=== PATIENT | female | born 1975 ===

== ENCOUNTER 2019-03-22 06:12 | Inpatient (IN) ==
[~2019-03-22 06:12] MED LIST: ACETAMINOPHEN 500 MG TABLET PO ONE; DIAZEPAM 5 MG TABLET PO ONE; FAMOTIDINE 20 MG TABLET PO ONE; GABAPENTIN 400 MG CAPSULE PO ONE; VANCOMYCIN INJ 1,000 MG in SODIUM CHLORIDE 0.9% 250 ML IV ONE; ceFAZolin 1,000 MG in SYRINGE 1 EACH IV ONE
[2019-03-22] MEDS ORDERED: DEXAMETHASONE 4 MG/1 ML VIAL ONE (07:01)
[2019-03-22] MEDS ORDERED: EPINEPHrine 1 MG/ML VIAL ONE (07:01)
[2019-03-22] MEDS ORDERED: BUPIVACAINE MPF 0.25% 30 ML VIAL ONE (07:01)
[2019-03-22] MEDS ORDERED: DIAZEPAM 5 MG TABLET ONE (07:13)
[2019-03-22] MEDS ORDERED: VANCOMYCIN 1,000 MG VIAL ONE (07:13)
[2019-03-22] MEDS ORDERED: GABAPENTIN 400 MG CAPSULE ONE (07:13)
[2019-03-22] MEDS ORDERED: CLINDAMYCIN INJ 50 ML IV ONE (07:14)
[2019-03-22] MEDS ORDERED: ACETAMINOPHEN 500 MG TABLET ONE (07:14)
[2019-03-22] MEDS ORDERED: FAMOTIDINE 20 MG TABLET ONE (07:14)
[2019-03-22] MEDS: CLINDAMYCIN INJ 900 MG in PREMIX 1 EACH IV SCH ×4 (08:45→23:49)
[2019-03-22] MEDS ORDERED: NEOMYCIN/POLYMYXIN/BACITRACIN OINT 28.4 GM TUBE TOP ONE (09:47)
[2019-03-22] MEDS ORDERED: oxyCODONE IR 5 MG TABLET PO PRN ×2 (10:16)
[2019-03-22] MEDS ORDERED: oxyCODONE/ACETAMINOPHEN 5-325 MG TABLET PO PRN (10:16)
[2019-03-22] MEDS ORDERED: ONDANSETRON 4 MG/2 ML VIAL IV PRN (10:16)
[2019-03-22] MEDS ORDERED: MORPHINE 4 MG/1 ML VIAL IV PRN (10:16)
[2019-03-22] MEDS ORDERED: diphenhydrAMINE CAP 25 MG CAPSULE PO PRN (10:16)
[2019-03-22] MEDS ORDERED: PROPOFOL 200 MG/20 ML VIAL IV ONE (13:13)
[2019-03-22] MEDS ORDERED: MIDAZOLAM 2 MG/2 ML VIAL ONE (13:14)
[2019-03-22] MEDS ORDERED: BUPIVACAINE SPINAL 0.75% 2 ML AMP SPINAL ONE (13:14)
[2019-03-22] MEDS ORDERED: TRANEXAMIC ACID 1,000 MG/10 ML VIAL ONE (13:14)
[2019-03-22] MEDS ORDERED: KETAMINE 500 MG/10 ML VIAL ONE (13:14)
[2019-03-22] MEDS ORDERED: ONDANSETRON 4 MG/2 ML VIAL ONE (13:14)
[2019-03-22] MEDS ORDERED: fentaNYL 100 MCG/2 ML VIAL ONE (13:14)
[2019-03-22] MEDS ORDERED: SODIUM CHLORIDE 0.9% 500 ML IV ONE (13:15)
[2019-03-22] MEDS ORDERED: SODIUM CHLORIDE 0.9% 100 ML IV ONE (13:15)
[2019-03-22] MEDS ORDERED: PHENYLEPHRINE 1 MG/10 ML SYRINGE IV ONE (13:15)
[2019-03-22 13:18] LABS: Apearance,Urine CLEAR (Clear); Bacteria,Urine Occasional /HPF (Few); Bilirubin,Urine Negative (Negative); Blood, Urine Negative (Negative); Glucose,Urine (UA) Negative (Negative); Ketones,Urine Negative (Negative); Mucus,Urine Occasional /LPF (Occasional); Nitrite,Urine Positive (Negative); Protein,Urine Negative; Urine Color Yellow (Yellow); Urine Specific Gravity 1.009 (1.001-1.035); Urine Urobilinogen < 2.0 EU/DL (0.2-1.0); WBC,Urine <1 /HPF (0-6)
[2019-03-22] MEDS: KETOROLAC 30 MG/1 ML VIAL IV SCH ×3 (14:30→23:18)
[2019-03-22] MEDS: LEVOTHYROXINE 137 MCG TABLET PO SCH (14:30)
[2019-03-22] MEDS: POTASSIUM CHLORIDE INJ 20 MEQ in LACTATED RINGERS 1,000 ML IV SCH ×2 (15:19→23:48)
[2019-03-22] MEDS: PROPRANOLOL 40 MG TABLET PO SCH ×2 (15:21→20:36)
[2019-03-22] MEDS: GABAPENTIN 300 MG CAPSULE PO SCH ×2 (15:21→20:35)
[2019-03-22] MEDS: oxyCODONE/ACETAMINOPHEN 5-325 MG TABLET PO PRN ×2 (15:28→19:44)
[2019-03-22] MEDS: DOCUSATE SODIUM 100 MG CAPSULE PO SCH (20:35)
[2019-03-22] MEDS: traZODone 50 MG TABLET PO SCH (20:35)
[2019-03-22] MEDS: MORPHINE 4 MG/1 ML VIAL IV PRN (23:20)
[2019-03-23 04:23] LABS: Basophils % 0.1 % (0.0-0.8); Hematocrit 27.7 VOL% (35.7-47.0); Hemoglobin 8.9 GM/DL (12.0-16.0); Immature Granulocytes % 1.2 %; Immature Granulocytes Absolute 0.09 #; Lymphocytes % 12.3 % (21.3-54.2); Mean Corpuscular HGB Conc 32.1 GM/DL (32-36); Mean Corpuscular Volume 90.5 FL (87-102); Mean Platelet Volume 9.2 FL (9.6-12.0); Monocytes % 7.6 % (1.7-12.7); Neutrophils % 78.8 % (38.7-73.9); Platelet Count 373 T/CUMM (130-400); Red Blood Count 3.06 MC/CUMM (3.8-5.5); Red Cell Distribution Width 14.4 % (9.3-17.3); White Blood Count 7.7 T/CUMM (4-12)
[2019-03-23 04:50] LABS: Calcium 8.2 MG/DL (8.5-10.1); Osmolality,Calculated 272.8 MOS/KG (273-304)
[2019-03-23] MEDS: KETOROLAC 30 MG/1 ML VIAL IV SCH (05:45)
[2019-03-23] MEDS: FONDAPARINUX 2.5 MG/0.5 ML SYRINGE SUBCUT SCH (05:45)
[2019-03-23] MEDS: LEVOTHYROXINE 137 MCG TABLET PO SCH (06:55)
[2019-03-23] MEDS: oxyCODONE/ACETAMINOPHEN 5-325 MG TABLET PO PRN ×3 (07:11→23:03)
[2019-03-23] MEDS: PANTOPRAZOLE 40 MG TABLET PO SCH (09:55)
[2019-03-23] MEDS: MULTIVITAMIN (CENTRUM) TABLET PO SCH (09:55)
[2019-03-23] MEDS: CYANOCOBALAMIN 500 MCG TABLET PO SCH (09:55)
[2019-03-23] MEDS: GABAPENTIN 300 MG CAPSULE PO SCH ×3 (09:55→21:10)
[2019-03-23] MEDS: PROPRANOLOL 40 MG TABLET PO SCH ×3 (09:55→21:10)
[2019-03-23] MEDS: hydroCHLOROthiazide 25 MG TABLET PO SCH (09:55)
[2019-03-23] MEDS: DOCUSATE SODIUM 100 MG CAPSULE PO SCH ×2 (09:55→21:10)
[2019-03-23] MEDS: POTASSIUM CHLORIDE 20 MEQ TABLET PO SCH (09:55)
[2019-03-23] MEDS ORDERED: ACETAMINOPHEN 325 MG TABLET PO PRN (10:17)
[2019-03-23] MEDS: MORPHINE 4 MG/1 ML VIAL IV PRN ×2 (15:40→21:12)
[2019-03-23] MEDS: traZODone 50 MG TABLET PO SCH (21:10)
[2019-03-24] MEDS: FONDAPARINUX 2.5 MG/0.5 ML SYRINGE SUBCUT SCH (05:16)
[2019-03-24 05:38] LABS: Basophils % 0.2 % (0.0-0.8); Eosinophils # 0.1 10*3/uL (0.0-0.87); Hematocrit 27.9 VOL% (35.7-47.0); Hemoglobin 8.8 GM/DL (12.0-16.0); Immature Granulocytes % 0.2 %; Immature Granulocytes Absolute 0.01 #; Lymphocytes # 1.7 10*3/uL (1.4-4.0); Lymphocytes % 37.6 % (21.3-54.2); Mean Corpuscular HGB Conc 31.5 GM/DL (32-36); Mean Corpuscular Volume 91.5 FL (87-102); Mean Platelet Volume 9.2 FL (9.6-12.0); Monocytes % 11.1 % (1.7-12.7); Neutrophils % 48.9 % (38.7-73.9); Platelet Count 343 T/CUMM (130-400); Red Blood Count 3.05 MC/CUMM (3.8-5.5); White Blood Count 4.5 T/CUMM (4-12)
[2019-03-24] MEDS ORDERED: LEVOTHYROXINE 137 MCG TABLET PO SCH (07:00)
[2019-03-24] MEDS: MORPHINE 4 MG/1 ML VIAL IV PRN ×2 (09:21→16:53)
[2019-03-24] MEDS: PANTOPRAZOLE 40 MG TABLET PO SCH (09:28)
[2019-03-24] MEDS: hydroCHLOROthiazide 25 MG TABLET PO SCH (09:28)
[2019-03-24] MEDS: PROPRANOLOL 40 MG TABLET PO SCH ×3 (09:28→21:21)
[2019-03-24] MEDS: MULTIVITAMIN (CENTRUM) TABLET PO SCH (09:29)
[2019-03-24] MEDS: GABAPENTIN 300 MG CAPSULE PO SCH ×3 (09:30→21:21)
[2019-03-24] MEDS: POTASSIUM CHLORIDE 20 MEQ TABLET PO SCH (09:31)
[2019-03-24] MEDS: DOCUSATE SODIUM 100 MG CAPSULE PO SCH ×2 (09:31→21:21)
[2019-03-24] MEDS: oxyCODONE/ACETAMINOPHEN 5-325 MG TABLET PO PRN ×2 (14:16→21:20)
[2019-03-24] MEDS: CYANOCOBALAMIN 500 MCG TABLET PO SCH (14:16)
[2019-03-24] MEDS: MAGNESIUM HYDROXIDE SUSP 30 ML UDCUP PO PRN (16:52)
[2019-03-24] MEDS: traZODone 50 MG TABLET PO SCH (21:21)
[2019-03-25] MEDS: MORPHINE 4 MG/1 ML VIAL IV PRN (00:42)
[2019-03-25] MEDS: oxyCODONE/ACETAMINOPHEN 5-325 MG TABLET PO PRN ×4 (03:07→20:28)
[2019-03-25] MEDS: FONDAPARINUX 2.5 MG/0.5 ML SYRINGE SUBCUT SCH (04:46)
[2019-03-25] MEDS: LEVOTHYROXINE 137 MCG TABLET PO SCH (06:01)
[2019-03-25 06:06] LABS: Basophils % 0.6 % (0.0-0.8); Eosinophils # 0.2 10*3/uL (0.0-0.87); Eosinophils % 3.3 % (0.00-10.9); Hematocrit 29.8 VOL% (35.7-47.0); Hemoglobin 9.5 GM/DL (12.0-16.0); Immature Granulocytes % 0.8 %; Immature Granulocytes Absolute 0.04 #; Lymphocytes # 1.7 10*3/uL (1.4-4.0); Lymphocytes % 34.2 % (21.3-54.2); Mean Corpuscular HGB Conc 31.9 GM/DL (32-36); Mean Corpuscular Volume 91.7 FL (87-102); Monocytes % 8.7 % (1.7-12.7); Neutrophils % 52.4 % (38.7-73.9); Platelet Count 336 T/CUMM (130-400); Red Blood Count 3.25 MC/CUMM (3.8-5.5); Red Cell Distribution Width 14.7 % (9.3-17.3); White Blood Count 4.8 T/CUMM (4-12)
[2019-03-25] MEDS: PROPRANOLOL 40 MG TABLET PO SCH ×3 (11:09→20:28)
[2019-03-25] MEDS: PANTOPRAZOLE 40 MG TABLET PO SCH (11:10)
[2019-03-25] MEDS: CYANOCOBALAMIN 500 MCG TABLET PO SCH (11:10)
[2019-03-25] MEDS: MULTIVITAMIN (CENTRUM) TABLET PO SCH (11:11)
[2019-03-25] MEDS: POTASSIUM CHLORIDE 20 MEQ TABLET PO SCH (11:11)
[2019-03-25] MEDS: DOCUSATE SODIUM 100 MG CAPSULE PO SCH ×2 (11:29→20:28)
[2019-03-25] MEDS: MAGNESIUM HYDROXIDE SUSP 30 ML UDCUP PO PRN ×2 (11:29→15:55)
[2019-03-25] MEDS: GABAPENTIN 300 MG CAPSULE PO SCH ×3 (11:29→20:28)
[2019-03-25] MEDS: hydroCHLOROthiazide 25 MG TABLET PO SCH (12:51)
[2019-03-25] MEDS: traZODone 50 MG TABLET PO SCH (20:28)
[2019-03-26] MEDS: oxyCODONE/ACETAMINOPHEN 5-325 MG TABLET PO PRN ×2 (03:43→08:35)
[2019-03-26] MEDS: FONDAPARINUX 2.5 MG/0.5 ML SYRINGE SUBCUT SCH (04:49)
[2019-03-26] MEDS: LEVOTHYROXINE 137 MCG TABLET PO SCH (06:04)
[2019-03-26 08:15] VITALS: BP 122/77
[2019-03-26] MEDS: PANTOPRAZOLE 40 MG TABLET PO SCH (08:36)
[2019-03-26] MEDS: CYANOCOBALAMIN 500 MCG TABLET PO SCH (08:36)
[2019-03-26] MEDS: POTASSIUM CHLORIDE 20 MEQ TABLET PO SCH (08:36)
[2019-03-26] MEDS: hydroCHLOROthiazide 25 MG TABLET PO SCH (08:36)
[2019-03-26] MEDS: MULTIVITAMIN (CENTRUM) TABLET PO SCH (08:36)
[2019-03-26] MEDS: GABAPENTIN 300 MG CAPSULE PO SCH (08:36)
[2019-03-26] MEDS: DOCUSATE SODIUM 100 MG CAPSULE PO SCH (08:36)
[2019-03-26] MEDS: PROPRANOLOL 40 MG TABLET PO SCH (08:37)
== END 2019-03-26 10:43 | DRG 470 ==
LOC: N.SDSINP 06:12 → N.3E 14:03
PROVIDERS: ADMIT Orthopaedic Surgery; ATTEND Orthopaedic Surgery

== ENCOUNTER 2019-06-28 05:28 | Inpatient (IN) ==
[2019-06-16 14:27] LABS: Apearance,Urine CLEAR (Clear); Bilirubin,Urine Negative (Negative); Blood, Urine Negative (Negative); Glucose,Urine (UA) Negative (Negative); Ketones,Urine Negative (Negative); Mucus,Urine Occasional /LPF (Occasional); Nitrite,Urine Negative (Negative); Protein,Urine Negative; RBC,Urine 1 /HPF (0-4); Squamous Epithelial Cell,Urine Occasional /HPF (0-10); Urine Color Straw (Yellow); Urine Specific Gravity 1.009 (1.001-1.035); Urine Urobilinogen < 2.0 EU/DL (0.2-1.0); WBC,Urine 6 /HPF (0-6)
[2019-06-16 14:33] LABS: Basophils % 0.8 % (0.0-0.8); Eosinophils # 0.2 10*3/uL (0.0-0.87); Eosinophils % 4.6 % (0.00-10.9); Hematocrit 37.1 VOL% (35.7-47.0); Hemoglobin 11.9 GM/DL (12.0-16.0); Immature Granulocytes % 0.2 %; Immature Granulocytes Absolute 0.01 #; Lymphocytes # 2.4 10*3/uL (1.4-4.0); Lymphocytes % 46.9 % (21.3-54.2); Mean Corpuscular HGB Conc 32.1 GM/DL (32-36); Mean Corpuscular Volume 77.9 FL (87-102); Mean Platelet Volume 10.2 FL (9.6-12.0); Monocytes % 6.6 % (1.7-12.7); Neutrophils % 40.9 % (38.7-73.9); Platelet Count 384 T/CUMM (130-400); Red Blood Count 4.76 MC/CUMM (3.8-5.5); Red Cell Distribution Width 16.2 % (9.3-17.3)
[2019-06-16 14:37] LABS: PT Patient Result 10.6 SECS (9.6-12.2); Partial Thromboplastin Time 26.5 SECS (20.8-36.0)
[2019-06-16 15:01] LABS: Albumin 4.2 G/DL (3.4-5.0); Bilirubin,Total 0.5 MG/DL (0.2-1.0); Calcium 9.2 MG/DL (8.5-10.1); Osmolality,Calculated 265.4 MOS/KG (273-304); Total Protein 8.1 G/DL (6.4-8.3)
[2019-06-28] MEDS ORDERED: GABAPENTIN 400 MG CAPSULE PO ONE (06:00)
[2019-06-28] MEDS ORDERED: ACETAMINOPHEN 500 MG TABLET PO ONE (06:00)
[2019-06-28] MEDS ORDERED: FAMOTIDINE 20 MG TABLET PO ONE (06:00)
[2019-06-28] MEDS ORDERED: VANCOMYCIN INJ 1,000 MG in SODIUM CHLORIDE 0.9% 250 ML IV ONE (06:00)
[2019-06-28] MEDS ORDERED: SCOPOLAMINE 1.5 MG PATCH TRANSDERM ONE ×2 (06:00→07:07)
[2019-06-28] MEDS ORDERED: ceFAZolin 1,000 MG in SYRINGE 1 EACH IV ONE (06:00)
[2019-06-28] MEDS ORDERED: LACTATED RINGERS 1,000 ML IV SCH (06:00)
[2019-06-28] MEDS ORDERED: BUPIVACAINE 0.5% 50 ML VIAL ONE (06:13)
[2019-06-28] MEDS ORDERED: EPINEPHrine 1 MG/ML VIAL ONE (06:14)
[2019-06-28] MEDS ORDERED: PROPOFOL 0 MG/0 ML BOTTLE IV ONE (06:14)
[2019-06-28] MEDS ORDERED: DEXAMETHASONE 4 MG/1 ML VIAL ONE ×2 (06:14→08:59)
[2019-06-28] MEDS ORDERED: MIDAZOLAM 2 MG/2 ML VIAL ONE ×2 (06:14→11:21)
[2019-06-28] MEDS ORDERED: LIDOCAINE 1% 5 ML VIAL ONE (06:14)
[2019-06-28] MEDS ORDERED: BACITRACIN OINT 0.9 GM PACK TOP ONE (07:00)
[2019-06-28] MEDS ORDERED: FAMOTIDINE 20 MG TABLET ONE (07:07)
[2019-06-28] MEDS ORDERED: GABAPENTIN 400 MG CAPSULE ONE (07:07)
[2019-06-28] MEDS ORDERED: ACETAMINOPHEN 500 MG TABLET ONE (07:07)
[2019-06-28] MEDS ORDERED: CLINDAMYCIN INJ 50 ML IV ONE (07:25)
[2019-06-28] MEDS ORDERED: VANCOMYCIN 1,000 MG VIAL ONE (07:25)
[2019-06-28] MEDS ORDERED: BUPIVACAINE SPINAL 0.75% 2 ML AMP SPINAL ONE (08:59)
[2019-06-28] MEDS ORDERED: TRANEXAMIC ACID 1,000 MG/10 ML VIAL ONE (08:59)
[2019-06-28] MEDS ORDERED: ROPIVACAINE 0.5% 30 ML VIAL ONE (08:59)
[2019-06-28] MEDS ORDERED: MAGNESIUM HYDROXIDE SUSP 30 ML UDCUP PO PRN (10:59)
[2019-06-28] MEDS ORDERED: oxyCODONE IR 5 MG TABLET PO PRN (10:59)
[2019-06-28] MEDS ORDERED: MORPHINE 4 MG/1 ML VIAL IV PRN (10:59)
[2019-06-28] MEDS ORDERED: diphenhydrAMINE CAP 25 MG CAPSULE PO PRN (10:59)
[2019-06-28 11:18] LABS: Apearance,Urine CLEAR (Clear); Bilirubin,Urine Negative (Negative); Blood, Urine Negative (Negative); Glucose,Urine (UA) Negative (Negative); Ketones,Urine Negative (Negative); Mucus,Urine Occasional /LPF (Occasional); Nitrite,Urine Negative (Negative); Protein,Urine Negative; Squamous Epithelial Cell,Urine Occasional /HPF (0-10); Urine Color Yellow (Yellow); Urine Specific Gravity 1.019 (1.001-1.035); Urine Urobilinogen < 2.0 EU/DL (0.2-1.0); WBC,Urine <1 /HPF (0-6)
[2019-06-28] MEDS ORDERED: PROPOFOL 200 MG/20 ML VIAL IV ONE (11:20)
[2019-06-28] MEDS ORDERED: LIDOCAINE 2% 5 ML VIAL ONE (11:20)
[2019-06-28] MEDS ORDERED: PHENYLEPHRINE 1 MG/10 ML SYRINGE IV ONE (11:21)
[2019-06-28] MEDS ORDERED: fentaNYL 100 MCG/2 ML VIAL ONE (11:21)
[2019-06-28] MEDS: LACTATED RINGERS 1,000 ML IV SCH ×2 (12:30→20:46)
[2019-06-28] MEDS: ceFAZolin 1,000 MG in SYRINGE 1 EACH IV SCH ×2 (15:25→23:48)
[2019-06-28] MEDS: KETOROLAC 30 MG/1 ML VIAL IV SCH ×3 (15:25→23:51)
[2019-06-28] MEDS: GABAPENTIN 300 MG CAPSULE PO SCH ×2 (15:26→20:46)
[2019-06-28] MEDS: ACETAMINOPHEN 500 MG TABLET PO SCH ×2 (15:27→20:47)
[2019-06-28] MEDS: oxyCODONE/ACETAMINOPHEN 5-325 MG TABLET PO PRN (15:36)
[2019-06-28] MEDS: DOCUSATE SODIUM 100 MG CAPSULE PO SCH (20:45)
[2019-06-28] MEDS: traZODone 50 MG TABLET PO SCH (20:45)
[2019-06-28] MEDS: PROPRANOLOL 40 MG TABLET PO SCH ×2 (20:46→20:53)
[2019-06-28] MEDS: oxyCODONE IR 5 MG TABLET PO PRN (21:01)
[2019-06-29] MEDS: ACETAMINOPHEN 500 MG TABLET PO SCH ×2 (03:58→10:14)
[2019-06-29] MEDS: KETOROLAC 30 MG/1 ML VIAL IV SCH (04:00)
[2019-06-29] MEDS: FONDAPARINUX 2.5 MG/0.5 ML SYRINGE SUBCUT SCH (04:05)
[2019-06-29 05:29] LABS: Calcium 8.3 MG/DL (8.5-10.1)
[2019-06-29 05:33] LABS: Basophils % 0.2 % (0.0-0.8); Hematocrit 27.4 VOL% (35.7-47.0); Hemoglobin 8.6 GM/DL (12.0-16.0); Immature Granulocytes % 0.3 %; Immature Granulocytes Absolute 0.02 #; Lymphocytes # 1.5 10*3/uL (1.4-4.0); Lymphocytes % 24.7 % (21.3-54.2); Mean Corpuscular HGB Conc 31.4 GM/DL (32-36); Mean Corpuscular Volume 77.6 FL (87-102); Mean Platelet Volume 10.1 FL (9.6-12.0); Monocytes % 9.1 % (1.7-12.7); Neutrophils % 65.7 % (38.7-73.9); Platelet Count 278 T/CUMM (130-400); Red Blood Count 3.53 MC/CUMM (3.8-5.5); Red Cell Distribution Width 17.1 % (9.3-17.3); White Blood Count 5.9 T/CUMM (4-12)
[2019-06-29] MEDS: LEVOTHYROXINE 137 MCG TABLET PO SCH (06:04)
[2019-06-29] MEDS: LACTATED RINGERS 1,000 ML IV SCH (06:04)
[2019-06-29] MEDS: PROPRANOLOL 40 MG TABLET PO SCH ×2 (10:13→21:26)
[2019-06-29] MEDS: CYANOCOBALAMIN 500 MCG TABLET PO SCH (10:14)
[2019-06-29] MEDS: POTASSIUM CHLORIDE 20 MEQ TABLET PO SCH (10:14)
[2019-06-29] MEDS: hydroCHLOROthiazide 25 MG TABLET PO SCH (10:14)
[2019-06-29] MEDS: MULTIVITAMIN (CENTRUM) TABLET PO SCH (10:14)
[2019-06-29] MEDS: DOCUSATE SODIUM 100 MG CAPSULE PO SCH ×2 (10:14→21:25)
[2019-06-29] MEDS: PANTOPRAZOLE 40 MG TABLET PO SCH (10:15)
[2019-06-29] MEDS: GABAPENTIN 300 MG CAPSULE PO SCH ×3 (10:16→21:26)
[2019-06-29] MEDS: oxyCODONE/ACETAMINOPHEN 5-325 MG TABLET PO PRN ×3 (12:05→23:16)
[2019-06-29] MEDS: ONDANSETRON 4 MG/2 ML VIAL IV PRN (14:13)
[2019-06-29] MEDS: oxyCODONE IR 5 MG TABLET PO PRN (18:11)
[2019-06-29] MEDS: traZODone 50 MG TABLET PO SCH (21:25)
[2019-06-30] MEDS: FONDAPARINUX 2.5 MG/0.5 ML SYRINGE SUBCUT SCH (05:10)
[2019-06-30 05:27] LABS: Basophils % 0.4 % (0.0-0.8); Eosinophils # 0.1 10*3/uL (0.0-0.87); Hematocrit 29.6 VOL% (35.7-47.0); Hemoglobin 9.2 GM/DL (12.0-16.0); Immature Granulocytes % 0.2 %; Immature Granulocytes Absolute 0.01 #; Lymphocytes # 1.3 10*3/uL (1.4-4.0); Lymphocytes % 26.1 % (21.3-54.2); Mean Corpuscular HGB Conc 31.1 GM/DL (32-36); Mean Corpuscular Volume 78.3 FL (87-102); Mean Platelet Volume 9.9 FL (9.6-12.0); Monocytes % 8.8 % (1.7-12.7); Neutrophils % 63.5 % (38.7-73.9); Platelet Count 259 T/CUMM (130-400); Red Blood Count 3.78 MC/CUMM (3.8-5.5); Red Cell Distribution Width 17.6 % (9.3-17.3); White Blood Count 5.1 T/CUMM (4-12)
[2019-06-30] MEDS: LEVOTHYROXINE 137 MCG TABLET PO SCH (06:36)
[2019-06-30] MEDS: DOCUSATE SODIUM 100 MG CAPSULE PO SCH ×2 (08:41→21:22)
[2019-06-30] MEDS: PANTOPRAZOLE 40 MG TABLET PO SCH (08:41)
[2019-06-30] MEDS: MORPHINE 4 MG/1 ML VIAL IV PRN ×2 (08:41→14:18)
[2019-06-30] MEDS: CYANOCOBALAMIN 500 MCG TABLET PO SCH (08:42)
[2019-06-30] MEDS: hydroCHLOROthiazide 25 MG TABLET PO SCH (08:42)
[2019-06-30] MEDS: PROPRANOLOL 40 MG TABLET PO SCH ×2 (08:42→21:22)
[2019-06-30] MEDS: POTASSIUM CHLORIDE 20 MEQ TABLET PO SCH (08:42)
[2019-06-30] MEDS: MULTIVITAMIN (CENTRUM) TABLET PO SCH (08:42)
[2019-06-30] MEDS: ONDANSETRON 4 MG/2 ML VIAL IV PRN (10:37)
[2019-06-30] MEDS: GABAPENTIN 300 MG CAPSULE PO SCH ×3 (10:43→21:22)
[2019-06-30] MEDS: oxyCODONE/ACETAMINOPHEN 5-325 MG TABLET PO PRN ×2 (17:45→22:42)
[2019-06-30] MEDS: traZODone 50 MG TABLET PO SCH (21:22)
[2019-07-01] MEDS: FONDAPARINUX 2.5 MG/0.5 ML SYRINGE SUBCUT SCH (05:53)
[2019-07-01] MEDS: LEVOTHYROXINE 137 MCG TABLET PO SCH (07:08)
[2019-07-01 07:51] VITALS: BP 119/75
[2019-07-01] MEDS: PROPRANOLOL 40 MG TABLET PO SCH (08:30)
[2019-07-01] MEDS: CYANOCOBALAMIN 500 MCG TABLET PO SCH (08:30)
[2019-07-01] MEDS: PANTOPRAZOLE 40 MG TABLET PO SCH (08:31)
[2019-07-01] MEDS: GABAPENTIN 300 MG CAPSULE PO SCH (08:32)
[2019-07-01] MEDS: oxyCODONE/ACETAMINOPHEN 5-325 MG TABLET PO PRN (08:33)
[2019-07-01] MEDS: MULTIVITAMIN (CENTRUM) TABLET PO SCH (08:33)
[2019-07-01] MEDS: hydroCHLOROthiazide 25 MG TABLET PO SCH (08:33)
[2019-07-01] MEDS: POTASSIUM CHLORIDE 20 MEQ TABLET PO SCH (08:33)
[2019-07-01] MEDS: DOCUSATE SODIUM 100 MG CAPSULE PO SCH (08:35)
== END 2019-07-01 11:10 | disposition home or self-care (01) | DRG 470 ==
LOC: N.SDSINP 05:28 → N.3E 11:15
PROVIDERS: ADMIT Orthopaedic Surgery; ATTEND Orthopaedic Surgery